=== PATIENT | male | born 1955 | race Caucasian/White ===

== ENCOUNTER 2016-12-22 07:08 | Inpatient (IN) | payer BC ==
[2016-12-15 11:14] LABS: WBC (NOT ORDERED) (RFLEX) 0 (0-5)
[2016-12-15 12:03] LABS: BASOPHILS 0.5 %; BASOPHILS ABSOLUTE 0.04 10/3/uL (0.0-0.16); EOSINOPHILS 2.5 %; EOSINOPHILS ABSOLUTE 0.18 10/3/uL (0.0-0.53); HEMATOCRIT 43.2 % (40.0-51.0); HEMOGLOBIN 14.8 g/dL (13.6-17.8); IMMATURE GRANULOCYTES 0.1 %; IMMATURE GRANULOCYTES ABSOLUTE 0.01 10/3/uL (0.0-0.11); LYMPHOCYTES ABSOLUTE 2.19 10/3/uL (0.67-4.30); MEAN CORPUS HGB CONC 34.3 g/dL (32.0-36.0); MEAN CORPUSCULAR HEMOGLOB 29.6 pg (26.0-34.0); MEAN CORPUSCULAR VOLUME 86.4 fL (80-100); MEAN PLATELET VOLUME 10.8 fL (9.2-13.0); MONOCYTES 5.3 %; MONOCYTES ABSOLUTE 0.39 10/3/uL (0.21-1.20); NEUTROPHILS 61.6 %; NEUTROPHILS ABSOLUTE 4.48 10/3/uL (2.02-8.40); PLATELET COUNT 197 10/3/uL (150-400); RBC DISTRIBUTION WIDTH 12.9 % (12.0-16.0); WHITE BLOOD CELLS 7.3 10/3/uL (4.5-10.5)
[2016-12-15 12:05] LABS: MANUAL DIFF NO %
[2016-12-15 12:10] LABS: INTERNATIONAL NORMAL RATI 1.3 UNITS (-)
[2016-12-15 12:17] LABS: % IRON SAT 25 % (20-50); A/G RATIO 1.1 (0.7-1.9); ALBUMIN 3.6 G/DL (3.5-5.0); ALKALINE PHOSPHATASE 57 U/L (45-117); BUN (BLOOD UREA NITROGEN) 16 MG/DL (6-23); CALCIUM, SERUM 8.3 MG/DL (8.5-10.4); CHLORIDE, SERUM 107 MMOL/L (96-112); CO2 (CARBON DIOXIDE) 30 MMOL/L (24-34); CREATININE 0.81 MG/DL (0.70-1.30); GFR AFRICAN AMERICAN 113 ML/MIN (>=60); GFR NON AFRICAN AMERICAN 97 ML/MIN (>=60); GLOBULIN 3.3 G/DL (2.5-4.1); GLUCOSE, SERUM 148 MG/DL (60-99); IRON BINDING CAPACITY 311 MCG/DL (250-450); IRON, SERUM 77 MCG/DL (35-150); POTASSIUM, SERUM 3.9 MMOL/L (3.5-5.3); SGOT(AST) 13 U/L (5-40); SGPT(ALT) 22 U/L (5-65); SODIUM, SERUM 144 MMOL/L (135-148); TOTAL BILIRUBIN 0.4 MG/DL (0-1.2); TOTAL PROTEIN 6.9 G/DL (6.0-8.5)
[2016-12-15 13:29] LABS: ASCORBIC ACID (UR NOT ORDER) NEG (NEG); BILIRUBIN, URINE NEGATIVE (NEG); KETONE, URINE NEGATIVE (NEG); LEUKOCYTE ESTERASE(NOT OR NEG (NEG)
--- NOTE | ~2016-12-22 | CN ---
Consultation Report [facility] [address] [place]. [address] NAME: NAYELY VAZQUEZ : 59 STATUS : ADM IN PAT#: [id number] AGE: 61 ADM/REG DATE : 12/22/16 MR#: [id number] REPORT SERV DATE: 12/24/16 DICTATED BY: DIANELYS BIRD DATE: 12/24/16 REPORT STATUS : Draft TRANSCRIBED BY: MODL DATE: 12/24/16 MEDICAL CONSULT DATE OF CONSULTATION: REASON FOR CONSULTATION: Diabetes management. HISTORY OF PRESENT ILLNESS: This is a very pleasant 61-year-old gentleman, who does have a history of diabetes type 2, insulin dependent with control on current management under Dr. Nancie snider. He has been diagnosed with diabetes about ten years ago and he is insulin dependent. Also, history of hypertension, paroxysmal atrial fibrillation, history of obesity, obstructive sleep apnea, degenerative joint disease, osteoarthritis, who has been recently diagnosed with extensive coronary artery disease. He had history of increasing shortness of breath, dyspnea on exertion as well as palpitation. He did have a stress test at the beginning of December, which showed some decreased ejection fraction and some ischemic changes, and that prompted him to be referred to a coronary arteriogram, which showed significant coronary artery disease. The patient has been referred to CT surgery and he underwent on the 2016 a bypass, 5 vessels as well as an extended left atrial maze procedure using radio-frequency ablation. Postoperatively, the patient has been started on insulin drip. He has been started also to eat and he tolerates diet very well. Hospitalist Service has been consulted for management of his diabetes. PAST MEDICAL HISTORY: Significant for diabetes type 2, insulin dependent, hypertension, paroxysmal atrial fibrillation, obesity, obstructive sleep apnea, degenerative joint disease, osteoarthritis, and recent diagnosed congestive heart failure. PAST SURGICAL HISTORY: Hiatal hernia repair, bilateral knee arthroscopic surgery, skin cancer removal and recent CABG. FAMILY HISTORY: Significant for coronary artery disease and cancer. SOCIAL HISTORY: The patient denies alcohol, tobacco, or IV drugs. MEDICATIONS: At home include Eliquis, aspirin, Cartia, Byetta, Neurontin, Glucotrol, hydrochlorothiazide, NovoLog sliding scale, Toujeo as well as metformin, Imdur, Altace, sotalol. REVIEW OF SYSTEMS: A 14-point review of systems had been obtained and pertinent positive has been listed into the history of present illness. Otherwise, negative except those underlying above. PHYSICAL EXAMINATION: VITAL SIGNS: Currently, the patient is afebrile. Blood pressure 124/72, heart rate 74, respiratory rate 15, saturating 96% on 4 L of oxygen, blood sugars anywhere between 125, 108, 91, 73, 101, and 77. Consultation Report [facility] [address] [place]. [address] NAME: NAYELY VAZQUEZ : 59 STATUS : ADM IN [facility]#: [id number] AGE: 61 ADM/REG DATE : 12/22/16 MR#: [id number] REPORT SERV DATE: 12/24/16 DICTATED BY: DIANELYS BIRD DATE: 12/24/16 REPORT STATUS : Draft TRANSCRIBED BY: ARASELI DATE: 12/24/16 GENERAL: He is a very pleasant, well-developed, well-nourished gentleman, in no acute distress. He is alert and oriented x3. He is nonfocal. He follows all his commands appropriately. HEENT: Show pupils equal, round, reactive to light. Extraocular movements intact. No JVD. No lymphadenopathy. No thyromegaly appreciated. CHEST: Eval shows bilateral air entry. Clear anteroposterior. Decreased breath sounds bibasilarly. No wheezes, crackles, or rhonchi appreciated. CARDIOVASCULAR: He has regular rate and rhythm. S1, S2 positive. No S3, no S4. No murmurs, rubs, or gallops appreciated. ABDOMEN: Soft, positive bowel sounds. Nontender. No guarding. No rebound. EXTREMITIES: No clubbing, cyanosis, or edema. NEUROLOGIC: The patient is alert and oriented x3. He is nonfocal. He follows all his commands appropriately. LABORATORY DATA: Labs from today include sodium of 144, potassium 4.3, chloride 111, CO2 25, BUN 25, creatinine 1, glucose is 117, and calcium is 7.8. His white count is 18.4, hemoglobin 12, hematocrit 35.4, and platelets 152. His INR is 1.4. His last hemoglobin A1c checked on 12/15/2016 show 5.7. ASSESSMENT AND PLAN: This is a very pleasant 61-year-old gentleman with recently diagnosed coronary artery disease, status post CABG x5 with diabetes type 2, currently insulin dependent uncontrolled. PLAN: We are going to start the patient on Levemir twice a day. Stop insulin drip in 1 hour after Levemir is given. Accu-Cheks before meals and at bedtime, sliding scale insulin subcutaneously level 3. Diet and lifestyle modification has been discussed with the patient as well. Further workup and recommendation pending above. Thank you for the consult. We will continue to follow with you. CF/MODL Dianelys Bird M.D. / [id number] CC: Shweta Browne M.D.
--- NOTE | ~2016-12-22 | DS ---
Discharge Summary [facility] [address] [place]. [address] NAME: NAYELY VAZQUEZ : 59 STATUS : DIS IN PAT#: [id number] AGE: 61 ADM/REG DATE : 12/22/16 MR#: [id number] REPORT SERV DATE: 01/03/17 DICTATED BY: DIANE SOUTH DATE: 01/02/17 REPORT STATUS : Draft TRANSCRIBED BY: ARASELI DATE: 01/02/17 Data Collection from hospitalization DISCHARGE DIAGNOSIS(ES): 1. Coronary artery disease. 2. Paroxysmal atrial fibrillation. 3. Hypertension. 4. Type 2 insulin-dependent diabetes mellitus. 5. Obstructive sleep apnea. 6. Obesity. 7. Degenerative joint disease. 8. Congestive heart failure. CONSULTATIONS: Dr. Dianelys Saeed and Dr. Devon Garland. PROCEDURES PERFORMED: 1. Coronary artery bypass grafting x5 with BELLA to the LAD, reverse saphenous vein graft placed to the first diagonal, reverse saphenous vein graft placed to the ramus intermedius, reverse saphenous vein graft placed to the third obtuse marginal, reverse saphenous vein graft placed to the posterior descending artery. 2. Extended left atrial Maze procedure on cardiopulmonary bypass using radiofrequency ablation. 3. Endoscopic vein harvest of the saphenous vein from the right leg. 4. Transesophageal echocardiography, 12/22/2016. PATHOLOGY: Heart, left atrial appendage; partial resection-multifocal fatty infiltration; no necrosis or active inflammation; myocyte hypertrophy, focal. MEDICATIONS: Vitamin C 1000 mg twice a day, aspirin 81 mg daily, Lipitor 40 mg at bedtime, Byetta 10 mcg subcutaneously twice a day, Lasix 40 mg daily, Neurontin 100 mg twice a day as needed, Glucotrol 5 mg every morning, Ohiopyle half to one tablet every four hours as needed, NovoLog injection insulin as instructed, Toujeo 40 units subcutaneously at bedtime, Prinivil 5 mg daily, Glucophage 1000 mg with breakfast and supper, Zaroxolyn 5 mg daily, Lopressor 12.5 mg twice a day, Klor-Con 20 mEq daily, safflower oil 1000 mg daily as needed, and Jantoven 7.5 mg every day at bedtime. He was instructed not to continue ramipril, sotalol, apixaban, diltiazem, hydrochlorothiazide or isosorbide. CONDITION AT DISCHARGE: Stable. DISPOSITION: The patient was discharged home on an 1800-calorie, low-cholesterol, low- sodium, cardiac/diabetic diet with activities as instructed. He would follow up with Dr. Rolando Moody 01/12/2017 and with Samuel Monroy three weeks following discharge. He would follow up at [facility] for an INR check 12/30/2016. HOSPITAL COURSE: This is a 61-year-old man who over the past year had noticed some increasing shortness of breath and dyspnea on exertion while walking uphill. He had no prior history of cardiac problems. He was having some problems with palpitations and this would feel like a fluttering in his chest. He would lie down to go to sleep, and usually by Discharge [address] [place]. [address] NAME: NAYELY VAZQUEZ : 59 STATUS : DIS IN PAT#: [id number] AGE: 61 ADM/REG DATE : 12/22/16 MR#: [id number] REPORT SERV DATE: 01/03/17 DICTATED BY: DIANE SOUTH DATE: 01/02/17 REPORT STATUS : Draft TRANSCRIBED BY: ARASELI DATE: 01/02/17 the following morning, the problem would be resolved. He had been referred to Cardiology and was placed on flecainide. He underwent myocardial perfusion imaging in 11/2016. He had not had any chest pain, but he did have borderline EKG changes that were suggestive of ischemia. His ejection fraction was mildly diminished at 48%. Imaging demonstrated posterolateral ischemia and stress test was graded as moderate risk. He was referred for a coronary arteriogram, which he underwent and this demonstrated significant flow-limiting multivessel coronary artery disease with diminished left ventricular function and ejection fraction 30%. Treatment options were discussed and it was elected to proceed with surgical intervention. He was admitted to the hospital for further evaluation and treatment. Upon admission, he was taken to the operating room where he underwent the above-mentioned procedure. He tolerated this well. There were no complications. On postop day #1, he was awake and alert. His incisions were okay. He was seen by Dr. Devon Garland. He had some mild discomfort. He was in a normal sinus rhythm. His lungs remained clear. He had mild edema. On 12/24/2016, he was seen by Dr. Dianelys Saeed regarding diabetes management, and the patient was diagnosed with diabetes about 10 years ago. He is insulin dependent. He has started to eat, and he tolerate his diet very well. He had been started on an insulin drip. The patient was going to be started on Levemir twice a day. Insulin drip would be stopped one hour after Levemir was given. Accu-Cheks would be performed before meals and at bedtime. Sliding scale insulin subcutaneously level 3 was started. Diet and lifestyle modification were discussed with the patient as well. He had been up sitting in a chair. He had trace lower extremity edema. White count was 18.4. On 12/25/2016, his lungs were more clear. His abdomen was soft and nontender. His incisions looked okay. Warfarin was started, pacing wires were removed. He was going to be transferred to the floor. He said he was feeling better. Plavix was stopped. Next day, he felt well. He was ambulating in his room. Discharge planning was performed. He had 2 to 3+ bilateral lower extremity edema. REJI hose remained in place. INR level was 1.3. On 12/27/2016, he seemed to be in good spirits. He had 1 to 2+ lower extremity edema. He had no chest pain or dyspnea. Discharge instructions were given. Due to his improved and stable condition, he was discharged home with the above-stated instructions. Information collected by: Selam Reeves I submit the above information as my discharge summary. TG/MODL Diane South M.D. / [id number] CC: Shweta Browne M.D. Mark Thel, M.D.
--- NOTE | ~2016-12-22 | OP ---
Record Of Operation [facility] [address] [place]. [address] NAME: NAYELY VAZQUEZ : 59 STATUS : ADM IN PAT#: [id number] AGE: 61 ADM/REG DATE : 12/22/16 MR#: [id number] REPORT SERV DATE: 12/22/16 DICTATED BY: DIANE SOUTH DATE: 12/22/16 REPORT STATUS : Draft TRANSCRIBED BY: MODL DATE: 12/22/16 DATE OF PROCEDURE: 12/22/2016 PREOPERATIVE DIAGNOSES: 1. Coronary artery disease with dyspnea on exertion. 2. Paroxysmal atrial fibrillation. 3. Chronic on acute congestive heart failure (ejection fraction 48% down to 30%). 4. Type 2 insulin-dependent diabetes mellitus. 5. Obesity. 6. Obstructive sleep apnea. POSTOPERATIVE DIAGNOSES: 1. Coronary artery bypass grafting x5, left internal mammary artery placed to left anterior descending, reverse saphenous vein graft placed to the first diagonal, reverse saphenous vein graft placed to the ramus intermedius, reverse saphenous vein graft placed to the third obtuse marginal, reverse saphenous vein graft placed to the posterior descending artery. 2. Extended left atrial Maze procedure on cardiopulmonary bypass using radiofrequency ablation. 3. Endoscopic vein harvest, saphenous vein from the right leg. 4. Transesophageal echocardiography. SURGEON: Diane South M.D. ASSISTANTS: Caleb Marshall and Max Krishnamurthy. ANESTHESIA: General with Dr. Colin . FRUIT OR NUT PICKER: Rolando Moody M.D. INDICATIONS: This is a very large, obese, diabetic, hypertensive male with increasing dyspnea on exertion over the last one year. He has no previous history of coronary or cardiac issues. There is a history of possible palpitations and Dr. Moody felt like the patient may have had paroxysmal atrial fibrillation. He was treated with medication for this. Because of recent EKG, he underwent evaluation with cardiac stress test. During the study, he had borderline EKG changes. Ventricular function mildly reduced at 48%. There is posterolateral ischemia. This was followed by cardiac catheterization which demonstrated diffuse and severe three-vessel coronary artery disease. Ventricular function was significantly reduced and ejection fraction of 30%, on cath. The patient was felt to have small heavily diseased targets; however, given the severity of disease and his other medical problems such as diabetes mellitus, it was felt the patient should undergo bypass surgery if possible. We were asked to see the patient for possible coronary artery bypass grafting and consideration for left atrial Maze procedure. We discussed with Dr. Moody with the patient's family and after discussing the operation, its indication, risks, they wished to proceed. STS predicted mortality was less than 5%. Morbidity-mortality less than 10%. This was shared with the patient and his family. Record Of Operation [address] [place]. [address] NAME: NAYELY VAZQUEZ : 59 STATUS : ADM IN PAT#: [id number] AGE: 61 ADM/REG DATE : 12/22/16 MR#: [id number] REPORT SERV DATE: 12/22/16 DICTATED BY: DIANE SOUTH DATE: 12/22/16 REPORT STATUS : Draft TRANSCRIBED BY: ARASELI DATE: 12/22/16 FINDINGS AT OPERATION: 1. Cross-clamp 89 minutes. Total pump time 118 minutes. 2. The LAD was 1.5 mm, heavily diseased vessel. Bypass is distally. A 3 mm BELLA was anastomosed to it with good runoff. 3. The first diagonal was 1.75 mm, heavily diseased. A 4 mm RSVG was anastomosed to it with good runoff. Unfortunately, this vein graft not long enough to reach the ascending aorta. Therefore, it was piggybacked into the side of vein graft going to the third obtuse marginal vessel. 4. The ramus intermedius vessel was 2 mm and moderately diseased. A 4 mm RSVG was anastomosed to it with good runoff. 5. The third obtuse marginal was 2 mm and moderately diseased. A 4 mm RSVG was anastomosed to it with runoff .. 6. The posterior descending artery was 1.5 mm and heavily diseased. A 4 mm RSVG was anastomosed to the distal portion of the PDA with good runoff. 7. The whole length of the right coronary artery graft was heavily calcified and not graftable. 8. The vein quality was good, and all grafts did have good Doppler signal at the end of the case. 9. Left atrial Maze procedure was performed on cardiopulmonary bypass. The complete lesion's check list may be found on the record. Briefly, we performed pulmonary vein isolation, superior and inferior dome lesions, and the left atrial appendage lesion and connecting lesion. Testing of exit and entrance block was performed. 10.We ligate and amputate the left atrial appendage using a 60 mm stapler. 11.There was a good or improved ventricular function after bypass were completed. There was no significant valvular pathology on echo. PATHOLOGIC SPECIMENS: Include left atrial appendage. DESCRIPTION OF PROCEDURE: The patient was brought to the operating suite. General anesthesia was induced. The airway secured with an endotracheal tube. Lines were secured by Anesthesia. A Delacruz catheter was placed. The patient's chest, abdomen, groin, and legs were prepped with Hibiclens and ChloraPrep and draped with Ioban sterile sheets. KELLY probe was placed by Anesthesia and examination carried out as discussed above. No clot was seen in the left atrial appendage per Dr. Colin. The saphenous vein was harvested from the right leg using endoscopic technique. Briefly, the vein was cut directly down upon through a 2 cm incision placed in the medial aspect of the right knee. Then, using VasoView trocars, the vessel was dissected from the surrounding subcutaneous tissue and fat. The side branches were identified, ligated, divided with cautery. Once adequate length of vein had been dissected, a counterincision was made up in the groin and in the lower leg. The vein was ligated, divided, and brought through the knee incision. The vein quality was good, and the leg was made hemostatic and closed in layers with absorbable suture and skin closed with subcuticular fashion. Next, a midline sternal incision was made, and the sternum was opened with a saw. The left hemithorax was elevated, and the endothoracic fascia was incised. Side branches of the NIRU Record Of Operation [address] [address] NAME: NAYELY VAZQUEZ MASHA : 59 STATUS : ADM IN PAT#: [id number] AGE: 61 ADM/REG DATE : 12/22/16 MR#: [id number] REPORT SERV DATE: 12/22/16 DICTATED BY: DIANE SOUTH DATE: 12/22/16 REPORT STATUS : Draft TRANSCRIBED BY: MODChacorta DATE: 12/22/16 were clipped and divided. Once the NIRU was completely dissected, the patient was anticoagulated with heparin and chest tube placed the left pleural cavity. The NIRU was clipped and divided distally. There was good flow through the NIRU, and its pedicle was infiltrated with papaverine. Next, the Elton retractor was placed in the pericardium over the innominate vein. The diaphragm was T'd and tacked to the side of the chest wall. Cannulation pursestring sutures were placed, and cannulation was carried out in a routine manner. A retrograde cardioplegia cannula was placed in the coronary sinus. When all was in readiness, the patient was placed on cardiopulmonary bypass. The distal targets were then marked out on the heart as described in the findings. We then performed left atrial Maze procedure. We dissected around the confluence of both right and left pulmonary veins. Then, testing was performed for X3 and later exit block confirmation using the AtriCure bipolar pen. Then, pulmonary vein isolation was performed using AtriCure bipolar clamp. The lesion was placed at the base of the atrial appendage and a connecting lesion between the left atrial appendage and left PVI was performed. Then, the aorta was crossclamped. Initial dose of cold blood cardioplegia solution was given in a combination of antegrade and retrograde fashion, then in a retrograde manner following proximal anastomoses. Following the first dose cardioplegia, the heart was gently retracted towards the surgeon. The left atrial appendage was grasped. It was ligated and amputated at its base using thoracoscopic stapler and 60 mm purple staple load. We then continued with the left atrial Maze procedure. A small left atriotomy was made and superior and inferior dome lesions were created using AtriCure bipolar clamp. Once this was completed, the left atriotomy was closed in a two-layer fashion with non pledgeted 4-0 Prolene. Then, a heart port was placed. We then turned our attention towards the bypass. The heart was first positioned for the PDA graft. Arteriotomy was made in the distal portion of the PDA. The vein graft trimmed and anastomosed to it with 7-0 Prolene. The vein graft was measured back to the right side of the ascending aorta where it was divided. We then positioned the heart for the ramus intermedius graft. Another arteriotomy was made. The vein graft trimmed and anastomosed to it with 7-0 Prolene. This vein graft was measured back to the left side of the ascending aorta where it was divided. Next, the proximal ends of the two vein grafts were anastomosed to 4.5 mm punch aortotomy with 6-0 Prolene. Another dose of cardioplegia was given. We positioned the heart for the obtuse marginal graft. Arteriotomy was made. The vein graft trimmed and anastomosed to it with 7-0 Prolene. The vein graft was measured back to the left side of the ascending aorta where it was divided. Next, the heart was positioned for the diagonal graft. Arteriotomy was made. The vein graft trimmed and anastomosed to it with 7-0 Prolene. This vein graft was not of sufficient length to reach the ascending aorta and was divided. Then, the proximal end of the obtuse marginal graft was anastomosed to 5 mm punch aortotomy with 6-0 Prolene. The vein from the diagonal was matched up to the side branch off this third obtuse marginal vessel and a small venotomy was made. Then, a venovenous anastomosis was constructed with 7-0 Prolene. Another dose of cardioplegia was given and warming was begun. We then positioned the heart for the LAD graft. Arteriotomy was made in the distal LAD. We did dissect up proximally on the LAD; however, it was Record Of Operation [address] [place]. [address] NAME: NAYELY VAZQUEZ : 59 STATUS : ADM IN PAT#: [id number] AGE: 61 ADM/REG DATE : 12/22/16 MR#: [id number] REPORT SERV DATE: 12/22/16 DICTATED BY: DIANE SOUTH DATE: 12/22/16 REPORT STATUS : Draft TRANSCRIBED BY: MODChacorta DATE: 12/22/16 extensively diseased and heavily calcified. I felt we should go where the vessel was in good reasonable quality. The NIRU was then brought out the left chest through a notch in the pericardium over the pulmonary artery. The NIRU was opened and anastomosed to the LAD with a running suture of 8-0 Prolene. The endothoracic fascia was tacked to epicardium. The patient was placed in Trendelenburg and a final dose of warm blood cardioplegia was given in a retrograde fashion. Ventricular and atrial pacing wires were placed. Following the last dose cardioplegia and deairing of the aorta, the aortic cross clamp was removed. The distal and proximal anastomoses were inspected and made hemostatic. Doppler demonstrated good flow through the grafts. The heart resumed a normal sinus rhythm and was paced atrially at a rate of 80. Ventilation was begun. When the heart demonstrated good contractility, it was allowed to fill and eject. When deairing was completed, the ascending aortic root vent was removed and these pursestring sutures tied and reinforced. The patient was weaned from cardiopulmonary bypass with minimal inotropic support. The venous cannula was removed and these pursestring sutures tied. KELLY examination demonstrated good ventricular function with no significant valvular pathology. Protamine was administered by Anesthesia and following a period of hemodynamic stability, the aortic cannula was removed and these pursestring sutures tied and reinforced. The patient continued do well and chest irrigated copiously with saline. Meticulous hemostasis was obtained. Hemasorb was ordered placed along the cut edge of the sternum. Once hemostasis was assured, the pericardium was draped over the anterior surface of heart and tacked into position. Doppler demonstrated good flow through the grafts following protamine administration. Then, chest tubes were placed and the sternum reapproximated with 8 sternal wires. The clavipectoral fascia and linea alba closed with #1 Stratafix. The subcutaneous tissue closed with 2-0 Stratafix. The skin was closed subcuticular fashion. The patient tolerated the procedure well. There were no complications. Sponge and needle counts were correct. DISPOSITION: The patient left intubated, sedated, and transported to the intensive care unit in stable condition. DEBRA/ARASELI Diane South M.D. / [id number] Record Of [address] [address] NAME: NAYELY VAZQUEZ : 59 STATUS : ADM IN [facility]#: [id number] AGE: 61 ADM/REG DATE : 12/22/16 MR#: [id number] REPORT SERV DATE: 12/22/16 DICTATED BY: DIANE SOUTH DATE: 12/22/16 REPORT STATUS : Draft TRANSCRIBED BY: ARASELI DATE: 12/22/16 CC: Shweta Browne M.D. Gregg Shander, M.D.
[~2016-12-22 07:08] MED LIST: ALTACE10 MG PO; ASAB PO; BETAPACE80 PO; BYETTA10 SC; CARTIA XT120 MG/24 PO; CLA1000 MG PO; ELIQUIS 5 MG TAB5 MG PO; FLECAINIDE100 MG PO; GLUCOPHAGE1000 MG PO; GLUCOTROL5 PO; HYDROCHLOROT12.5 MG PO; IMDUR30 PO; NEUR100 PO; NEUR600 PO; NOVOLOG SC; TOUJEO SC
[2016-12-22 21:53] LABS: BE (BASE EXCESS) -3.6 MEQ/L (0 +/- 2.5); CARBOXYHEMOGLOBIN 0.4 % (0-3); HCO3 (ACTUAL BICARBONATE) 22.9 MEQ/L (23-27); INSTRUMENT SERIAL # 11843; METHEMOGLOBIN 0.3 % (0-3); MODE SIMV; O2 CONTENT 19.1 VOL% (18-24); PCO2 (CO2 TENSION) 47 MMHG (35-45); PO2 (O2 TENSION) 111 MMHG (79-93); SAMPLE Arterial; TIDAL VOLUME 800 ML; pH 7.31 (7.37-7.43)
[2016-12-22 21:59] LABS: BASOPHILS 0.2 %; BASOPHILS ABSOLUTE 0.04 10/3/uL (0.0-0.16); EOSINOPHILS 0.5 %; EOSINOPHILS ABSOLUTE 0.09 10/3/uL (0.0-0.53); HEMATOCRIT 39.8 % (40.0-51.0); HEMOGLOBIN 13.7 g/dL (13.6-17.8); IMMATURE GRANULOCYTES 0.3 %; IMMATURE GRANULOCYTES ABSOLUTE 0.05 10/3/uL (0.0-0.11); LYMPHOCYTES 8.1 %; LYMPHOCYTES ABSOLUTE 1.55 10/3/uL (0.67-4.30); MANUAL DIFF NO %; MEAN CORPUS HGB CONC 34.4 g/dL (32.0-36.0); MEAN CORPUSCULAR VOLUME 87.3 fL (80-100); MEAN PLATELET VOLUME 10.4 fL (9.2-13.0); MONOCYTES 3.1 %; NEUTROPHILS 87.8 %; NEUTROPHILS ABSOLUTE 16.79 10/3/uL (2.02-8.40); PLATELET COUNT 155 10/3/uL (150-400); RBC DISTRIBUTION WIDTH 13.4 % (12.0-16.0); RED CELL COUNT 4.56 10/6/uL (4.7-6.1); WHITE BLOOD CELLS 19.1 10/3/uL (4.5-10.5)
[2016-12-22 22:10] LABS: INTERNATIONAL NORMAL RATI 1.4 UNITS (-); PARTIAL THROMBO TIME 29.6 SEC (22.5-37.2)
[2016-12-22 22:11] LABS: BUN (BLOOD UREA NITROGEN) 17 MG/DL (6-23); CALCIUM, SERUM 8.3 MG/DL (8.5-10.4); CHLORIDE, SERUM 116 MMOL/L (96-112); CO2 (CARBON DIOXIDE) 26 MMOL/L (24-34); CREATININE 1.04 MG/DL (0.70-1.30); GFR AFRICAN AMERICAN 91 ML/MIN (>=60); GFR NON AFRICAN AMERICAN 78 ML/MIN (>=60); GLUCOSE, SERUM 125 MG/DL (60-99); SODIUM, SERUM 149 MMOL/L (135-148)
[2016-12-22 22:13] LABS: POTASSIUM, SERUM 3.8 MMOL/L (3.5-5.3)
[2016-12-22 22:37] LABS: FIBRINOGEN 249 MG/DL (230-462)
[2016-12-23 00:46] LABS: BASOPHILS 0.1 %; BASOPHILS ABSOLUTE 0.01 10/3/uL (0.0-0.16); EOSINOPHILS 0.1 %; EOSINOPHILS ABSOLUTE 0.01 10/3/uL (0.0-0.53); HEMATOCRIT 42.6 % (40.0-51.0); HEMOGLOBIN 14.9 g/dL (13.6-17.8); IMMATURE GRANULOCYTES 0.2 %; IMMATURE GRANULOCYTES ABSOLUTE 0.03 10/3/uL (0.0-0.11); LYMPHOCYTES 7.1 %; LYMPHOCYTES ABSOLUTE 1.11 10/3/uL (0.67-4.30); MEAN CORPUSCULAR HEMOGLOB 30.1 pg (26.0-34.0); MEAN CORPUSCULAR VOLUME 86.1 fL (80-100); MEAN PLATELET VOLUME 10.5 fL (9.2-13.0); MONOCYTES 2.4 %; MONOCYTES ABSOLUTE 0.38 10/3/uL (0.21-1.20); NEUTROPHILS 90.1 %; NEUTROPHILS ABSOLUTE 14.04 10/3/uL (2.02-8.40); PLATELET COUNT 135 10/3/uL (150-400); RBC DISTRIBUTION WIDTH 13.4 % (12.0-16.0); RED CELL COUNT 4.95 10/6/uL (4.7-6.1); WHITE BLOOD CELLS 15.6 10/3/uL (4.5-10.5)
[2016-12-23 00:48] LABS: MANUAL DIFF NO %
[2016-12-23 00:57] LABS: BUN (BLOOD UREA NITROGEN) 18 MG/DL (6-23); CALCIUM, SERUM 8.3 MG/DL (8.5-10.4); CHLORIDE, SERUM 115 MMOL/L (96-112); CO2 (CARBON DIOXIDE) 23 MMOL/L (24-34); GFR AFRICAN AMERICAN 95 ML/MIN (>=60); GFR NON AFRICAN AMERICAN 82 ML/MIN (>=60); GLUCOSE, SERUM 181 MG/DL (60-99); SODIUM, SERUM 147 MMOL/L (135-148)
[2016-12-23 03:25] LABS: BE (BASE EXCESS) -5.6 MEQ/L (0 +/- 2.5); CARBOXYHEMOGLOBIN 0.3 % (0-3); DEVICE NC; HCO3 (ACTUAL BICARBONATE) 19.7 MEQ/L (23-27); HEMOBLOGIN CONTENT 14.8 G/DL (14-18); INSTRUMENT SERIAL # 11843; METHEMOGLOBIN 0.3 % (0-3); O2 CONTENT 19.7 VOL% (18-24); PCO2 (CO2 TENSION) 38 MMHG (35-45); PO2 (O2 TENSION) 86 MMHG (79-93); SAMPLE Arterial; pH 7.33 (7.37-7.43)
[2016-12-23 03:40] LABS: BASOPHILS 0.1 %; BASOPHILS ABSOLUTE 0.01 10/3/uL (0.0-0.16); EOSINOPHILS 0 %; HEMATOCRIT 41.6 % (40.0-51.0); HEMOGLOBIN 14.3 g/dL (13.6-17.8); IMMATURE GRANULOCYTES 0.2 %; IMMATURE GRANULOCYTES ABSOLUTE 0.03 10/3/uL (0.0-0.11); LYMPHOCYTES 4.7 %; LYMPHOCYTES ABSOLUTE 0.69 10/3/uL (0.67-4.30); MEAN CORPUS HGB CONC 34.4 g/dL (32.0-36.0); MEAN CORPUSCULAR HEMOGLOB 29.6 pg (26.0-34.0); MEAN CORPUSCULAR VOLUME 86.1 fL (80-100); MEAN PLATELET VOLUME 10.3 fL (9.2-13.0); MONOCYTES 3.5 %; MONOCYTES ABSOLUTE 0.52 10/3/uL (0.21-1.20); NEUTROPHILS 91.5 %; NEUTROPHILS ABSOLUTE 13.58 10/3/uL (2.02-8.40); PLATELET COUNT 135 10/3/uL (150-400); RBC DISTRIBUTION WIDTH 13.3 % (12.0-16.0); RED CELL COUNT 4.83 10/6/uL (4.7-6.1); WHITE BLOOD CELLS 14.8 10/3/uL (4.5-10.5)
[2016-12-23 03:41] LABS: MANUAL DIFF NO %
[2016-12-23 03:54] LABS: BUN (BLOOD UREA NITROGEN) 17 MG/DL (6-23); CHLORIDE, SERUM 115 MMOL/L (96-112); CO2 (CARBON DIOXIDE) 24 MMOL/L (24-34); CREATININE 0.88 MG/DL (0.70-1.30); GFR AFRICAN AMERICAN 109 ML/MIN (>=60); GFR NON AFRICAN AMERICAN 94 ML/MIN (>=60); GLUCOSE, SERUM 145 MG/DL (60-99); POTASSIUM, SERUM 4.1 MMOL/L (3.5-5.3); SODIUM, SERUM 147 MMOL/L (135-148)
[2016-12-24 03:41] LABS: BASOPHILS 0.1 %; BASOPHILS ABSOLUTE 0.01 10/3/uL (0.0-0.16); EOSINOPHILS 0.1 %; EOSINOPHILS ABSOLUTE 0.01 10/3/uL (0.0-0.53); HEMATOCRIT 35.4 % (40.0-51.0); IMMATURE GRANULOCYTES 0.3 %; IMMATURE GRANULOCYTES ABSOLUTE 0.06 10/3/uL (0.0-0.11); LYMPHOCYTES 10.7 %; LYMPHOCYTES ABSOLUTE 1.98 10/3/uL (0.67-4.30); MANUAL DIFF NO %; MEAN CORPUS HGB CONC 33.9 g/dL (32.0-36.0); MEAN CORPUSCULAR HEMOGLOB 29.9 pg (26.0-34.0); MEAN CORPUSCULAR VOLUME 88.3 fL (80-100); MEAN PLATELET VOLUME 10.2 fL (9.2-13.0); MONOCYTES 7.9 %; MONOCYTES ABSOLUTE 1.45 10/3/uL (0.21-1.20); NEUTROPHILS 80.9 %; NEUTROPHILS ABSOLUTE 14.93 10/3/uL (2.02-8.40); PLATELET COUNT 152 10/3/uL (150-400); RBC DISTRIBUTION WIDTH 13.6 % (12.0-16.0); RED CELL COUNT 4.01 10/6/uL (4.7-6.1); WHITE BLOOD CELLS 18.4 10/3/uL (4.5-10.5)
[2016-12-24 03:58] LABS: CALCIUM, SERUM 7.8 MG/DL (8.5-10.4); CHLORIDE, SERUM 111 MMOL/L (96-112); CO2 (CARBON DIOXIDE) 25 MMOL/L (24-34); GFR AFRICAN AMERICAN 95 ML/MIN (>=60); GFR NON AFRICAN AMERICAN 82 ML/MIN (>=60); GLUCOSE, SERUM 117 MG/DL (60-99); POTASSIUM, SERUM 4.3 MMOL/L (3.5-5.3); SODIUM, SERUM 144 MMOL/L (135-148)
[2016-12-24 03:59] LABS: BUN (BLOOD UREA NITROGEN) 25 MG/DL (6-23)
[2016-12-25 03:54] LABS: HEMATOCRIT 37.5 % (40.0-51.0); HEMOGLOBIN 12.9 g/dL (13.6-17.8); MEAN CORPUS HGB CONC 34.4 g/dL (32.0-36.0); MEAN CORPUSCULAR HEMOGLOB 30.3 pg (26.0-34.0); MEAN PLATELET VOLUME 11.1 fL (9.2-13.0); PLATELET COUNT 163 10/3/uL (150-400); RBC DISTRIBUTION WIDTH 13.7 % (12.0-16.0); RED CELL COUNT 4.26 10/6/uL (4.7-6.1)
[2016-12-25 03:55] LABS: MANUAL DIFF YES %
[2016-12-25 04:07] LABS: BUN (BLOOD UREA NITROGEN) 22 MG/DL (6-23); CALCIUM, SERUM 8.4 MG/DL (8.5-10.4); CREATININE 1.09 MG/DL (0.70-1.30); GFR AFRICAN AMERICAN 86 ML/MIN (>=60); GFR NON AFRICAN AMERICAN 74 ML/MIN (>=60); POTASSIUM, SERUM 4.1 MMOL/L (3.5-5.3)
[2016-12-25 04:08] LABS: CHLORIDE, SERUM 98 MMOL/L (96-112); CO2 (CARBON DIOXIDE) 30 MMOL/L (24-34); GLUCOSE, SERUM 303 MG/DL (60-99); SODIUM, SERUM 137 MMOL/L (135-148)
[2016-12-25 05:11] LABS: ANISOCYTOSIS 1+ (5-10/OIF) (0-5/OIF); EOSINOPHILS 2 %; EOSINOPHILS ABSOLUTE (CALC) 0.34 10/3/uL (0.0-0.53); LYMPHOCYTES 6 %; LYMPHOCYTES ABSOLUTE (CALC) 1.02 10/3/uL (0.67-4.30); MONOCYTES 4 %; MONOCYTES ABSOLUTE (CALC) 0.68 10/3/uL (0.21-1.20); NEUTROPHILS ABSOLUTE (CALC) 14.96 10/3/uL (2.02-8.40); PLATELET ESTIMATE ADQ (ADEQUATE); SEGMENTED NEUTROPHIL (0) 88 %; TOTAL NUCLEATED CELLS 100
[2016-12-26 04:25] LABS: BASOPHILS 0.1 %; BASOPHILS ABSOLUTE 0.02 10/3/uL (0.0-0.16); EOSINOPHILS 2.4 %; EOSINOPHILS ABSOLUTE 0.34 10/3/uL (0.0-0.53); HEMATOCRIT 38.9 % (40.0-51.0); HEMOGLOBIN 13.4 g/dL (13.6-17.8); IMMATURE GRANULOCYTES 0.1 %; IMMATURE GRANULOCYTES ABSOLUTE 0.02 10/3/uL (0.0-0.11); INTERNATIONAL NORMAL RATI 1.3 UNITS (-); LYMPHOCYTES ABSOLUTE 1.85 10/3/uL (0.67-4.30); MEAN CORPUS HGB CONC 34.4 g/dL (32.0-36.0); MEAN PLATELET VOLUME 10.4 fL (9.2-13.0); MONOCYTES 7.5 %; MONOCYTES ABSOLUTE 1.07 10/3/uL (0.21-1.20); NEUTROPHILS 76.9 %; NEUTROPHILS ABSOLUTE 10.94 10/3/uL (2.02-8.40); PLATELET COUNT 162 10/3/uL (150-400); PROTIME (NOT ORD) 15.6 SEC (12.0-14.5); RBC DISTRIBUTION WIDTH 13.3 % (12.0-16.0); RED CELL COUNT 4.47 10/6/uL (4.7-6.1); WHITE BLOOD CELLS 14.2 10/3/uL (4.5-10.5)
[2016-12-26 04:31] LABS: CALCIUM, SERUM 8.7 MG/DL (8.5-10.4); CHLORIDE, SERUM 99 MMOL/L (96-112); CO2 (CARBON DIOXIDE) 30 MMOL/L (24-34); CREATININE 0.96 MG/DL (0.70-1.30); GFR AFRICAN AMERICAN 100 ML/MIN (>=60); GFR NON AFRICAN AMERICAN 86 ML/MIN (>=60); POTASSIUM, SERUM 3.3 MMOL/L (3.5-5.3); SODIUM, SERUM 138 MMOL/L (135-148)
[2016-12-26 04:32] LABS: BUN (BLOOD UREA NITROGEN) 27 MG/DL (6-23); GLUCOSE, SERUM 213 MG/DL (60-99)
[2016-12-26 04:44] LABS: MANUAL DIFF NO %
[2016-12-27 06:19] LABS: INTERNATIONAL NORMAL RATI 1.3 UNITS (-); PROTIME (NOT ORD) 16.3 SEC (12.0-14.5)
[2016-12-27 06:23] LABS: BASOPHILS 0.2 %; BASOPHILS ABSOLUTE 0.03 10/3/uL (0.0-0.16); EOSINOPHILS 3.7 %; EOSINOPHILS ABSOLUTE 0.53 10/3/uL (0.0-0.53); HEMATOCRIT 37.8 % (40.0-51.0); HEMOGLOBIN 13.2 g/dL (13.6-17.8); IMMATURE GRANULOCYTES 0.3 %; IMMATURE GRANULOCYTES ABSOLUTE 0.04 10/3/uL (0.0-0.11); LYMPHOCYTES 11.2 %; LYMPHOCYTES ABSOLUTE 1.62 10/3/uL (0.67-4.30); MEAN CORPUS HGB CONC 34.9 g/dL (32.0-36.0); MEAN CORPUSCULAR HEMOGLOB 29.7 pg (26.0-34.0); MEAN CORPUSCULAR VOLUME 84.9 fL (80-100); MEAN PLATELET VOLUME 10.4 fL (9.2-13.0); MONOCYTES 8.9 %; MONOCYTES ABSOLUTE 1.28 10/3/uL (0.21-1.20); NEUTROPHILS 75.7 %; NEUTROPHILS ABSOLUTE 10.95 10/3/uL (2.02-8.40); RBC DISTRIBUTION WIDTH 13.3 % (12.0-16.0); RED CELL COUNT 4.45 10/6/uL (4.7-6.1); WHITE BLOOD CELLS 14.5 10/3/uL (4.5-10.5)
[2016-12-27 06:31] LABS: MANUAL DIFF NO %; PLATELET COUNT 218 10/3/uL (150-400)
[2016-12-27 06:33] LABS: CALCIUM, SERUM 8.5 MG/DL (8.5-10.4); CHLORIDE, SERUM 96 MMOL/L (96-112); CO2 (CARBON DIOXIDE) 32 MMOL/L (24-34); CREATININE 1.06 MG/DL (0.70-1.30); GFR AFRICAN AMERICAN 89 ML/MIN (>=60); GFR NON AFRICAN AMERICAN 76 ML/MIN (>=60); GLUCOSE, SERUM 190 MG/DL (60-99); POTASSIUM, SERUM 3.5 MMOL/L (3.5-5.3); SODIUM, SERUM 137 MMOL/L (135-148)
[2016-12-27 06:35] LABS: BUN (BLOOD UREA NITROGEN) 33 MG/DL (6-23)
[2016-12-27] MEDS ORDERED: VITC500 PO (10:10)
[2016-12-27] MEDS ORDERED: LIPITOR40 PO (10:11)
[2016-12-27] MEDS ORDERED: JANTOVEN5 MG PO (10:20)
[2016-12-27] MEDS ORDERED: Z5 PO (10:20)
[2016-12-27] MEDS ORDERED: NORCO1 TAB PO (10:21)
[2016-12-27] MEDS ORDERED: KLOR-CON M2020 MEQ PO (10:23)
[2016-12-27] MEDS ORDERED: L40 PO (10:23)
[2016-12-27] MEDS ORDERED: PRIN5 PO (10:24)
[2016-12-27] MEDS ORDERED: LOP25 PO (10:24)
[2017-06-29] MEDS ORDERED: ELIQUIS 5 MG TAB5 MG PO (17:09)
[2017-06-29] MEDS ORDERED: VITC500 PO (17:09)
[2017-06-29] MEDS ORDERED: ASAB PO (17:10)
[2017-06-29] MEDS ORDERED: LIPITOR40 PO (17:10)
[2017-06-29] MEDS ORDERED: OTC STOOL SOFTENER PO (17:11)
[2017-06-29] MEDS ORDERED: L40 PO (17:11)
[2017-06-29] MEDS ORDERED: PRIN5 PO (17:12)
[2017-06-29] MEDS ORDERED: GLUCOTROL5 PO (17:12)
[2017-06-29] MEDS ORDERED: GLUCOPHAGE1000 MG PO (17:13)
[2017-06-29] MEDS ORDERED: Z5 PO (17:14)
[2017-06-29] MEDS ORDERED: LOP25 PO (17:15)
[2017-06-29] MEDS ORDERED: KLOR-CON M2020 MEQ PO (17:15)
[2017-06-29] MEDS ORDERED: BYETTA10 SC (17:16)
[2017-06-29] MEDS ORDERED: NOVOLOG SC (17:17)
[2017-06-29] MEDS ORDERED: NEUR100 PO (17:18)
[2017-06-29] MEDS ORDERED: TOUJEO SC (17:18)
[2017-06-29] MEDS ORDERED: CLA1000 MG PO (17:20)
[2017-06-29] MEDS ORDERED: FORTAMET500 MG PO (17:25)
== END 2016-12-27 12:35 | disposition home or self-care (01) | DRG 228 ==
LOC: SDC/OF 07:08 → CVICU 15:59 → 5NO 12-25 09:53
PROVIDERS: Internal Medicine Cardiovascular Disease; Nurse Practitioner Family; Thoracic Surgery (Cardiothoracic Vascular Surgery)
PROC: 06BP4ZZ Excision of Right Saphenous Vein, Percutaneous Endoscopic Approach (ICD-10-PCS; 2016-12-22)
PROC: 5A1221Z Performance of Cardiac Output, Continuous (ICD-10-PCS; 2016-12-22)
PROC: B246ZZ4 Ultrasonography of Right and Left Heart, Transesophageal (ICD-10-PCS; 2016-12-22)
PROC: 02B70ZK Excision of Left Atrial Appendage, Open Approach (ICD-10-PCS; 2016-12-22)
PROC: 021309W Bypass Coronary Artery, Four or More Arteries from Aorta with Autologous Venous Tissue, Open Approach (ICD-10-PCS; principal; 2016-12-22 10:00)
PROC: 02580ZZ Destruction of Conduction Mechanism, Open Approach (ICD-10-PCS; 2016-12-22 10:00)
PROC: 0210099 Bypass Coronary Artery, One Artery from Left Internal Mammary with Autologous Venous Tissue, Open Approach (ICD-10-PCS; 2016-12-22 10:00)
DX: I25.10 Atherosclerotic heart disease of native coronary artery without angina pectoris (principal); I50.23 Acute on chronic systolic (congestive) heart failure; I48.0 Paroxysmal atrial fibrillation; E11.9 Type 2 diabetes mellitus without complications; E66.9 Obesity, unspecified; G47.33 Obstructive sleep apnea (adult) (pediatric); Z79.899 Other long term (current) drug therapy; Z79.84 Long term (current) use of oral hypoglycemic drugs; I11.0 Hypertensive heart disease with heart failure; Z68.35 Body mass index [BMI] 35.0-35.9, adult
CPT/HCPCS: 31720; 36415; 71010; 71020; 80048; 80053; 81001; 82330; 82803; 82805; 82947; 82962; 83036; 83540; 83550; 83735; 84132; 84295; 85014; 85025; 85347; 85384; 85610; 85730; 86850; 86900; 86901; 86920; 87641; 88304; 90686; 93005; 93312; 93320; 93325; 94002; 94640; 94660; 94770; A9270-GY; C1713; C1769; C1894; G0008; J0690; J1644; J2150; J2250; J2370; J2405; J2440; J2720; J2795; J2930; J3010; J3475; J3480; P9045; P9047

== ENCOUNTER 2017-01-20 10:01 | Inpatient (IN) | payer BC ==
--- NOTE | ~2017-01-20 | DS ---
Discharge Summary [facility] [address] [place] [address] NAME: NAYELY VAZQUEZ : 59 STATUS : DIS IN PAT#: [id number] AGE: 62 ADM/REG DATE : 01/20/17 MR#: [id number] REPORT SERV DATE: 02/06/17 DICTATED BY: XIN ROSALES DATE: 02/05/17 REPORT STATUS : Draft TRANSCRIBED BY: MODL DATE: 02/05/17 Data Collection from hospitalization DISCHARGE DIAGNOSES: 1. Moderate-large pericardial effusion. 2. Coronary artery disease, chronic anticoagulation. 3. Type 2 diabetes mellitus. 4. Paroxysmal atrial fibrillation. 5. Obstructive sleep apnea. 6. Hypertension. 7. Hyperlipidemia. 8. Ischemic cardiomyopathy. CONSULTATION: Dr. Mariusz South. PROCEDURES PERFORMED: 1. Formal transthoracic echocardiogram and cardioversion, 01/21/2017. 2. Subxiphoid pericardial window with drainage of pericardial effusion, transesophageal echocardiogram, 01/23/2017. 3. CT scan of the chest without contrast, 01/22/2017. DISCHARGE MEDICATIONS: Tylenol 500 mg twice a day as needed, Eliquis 5 mg twice a day, vitamin C 1000 mg twice a day, Halfprin 81 mg every morning, Lipitor 40 mg at bedtime, Keflex 500 mg three times a day for 10 days, Colace 400 mg at bedtime, Byetta 10 mcg subcutaneously with breakfast and supper, Lasix 40 mg every morning, Neurontin 100 mg twice a day as needed, Glucotrol 5 mg every morning, [place] 10/325 half to one tablet every four hours as needed, [place] 10/325 half tablet at bedtime, NovoLog FlexPen as instructed, Toujeo 40 units subcutaneously at bedtime, Prinivil 5 mg every morning, Glucophage 1000 mg with breakfast and supper, Zaroxolyn 5 mg every morning, Lopressor 12.5 mg twice a day, Klor-Con 20 mEq every morning, Safflower oil 1000 mg daily as needed. CONDITION AT DISCHARGE: Stable. DISPOSITION: The patient was discharged home on 1800-calorie diabetic diet with activities as instructed. He would follow up with Samuel Monroy, 02/19/[address] Xin Rosales, 02/25/2017. HOSPITAL COURSE: This is a 61-year-old man, who had undergone five-vessel coronary artery bypass grafting by Dr. South on 12/22/2016. At that time, he also had a maze procedure. He has a history of paroxysmal atrial fibrillation and I had followed him over the past several years. He reportedly had been on sotalol prior to surgery, but a few doses of amiodarone had been given after surgery. He had been discharged home without any amiodarone. He is a diabetic with hypertension and hyperlipidemia, but has no history of smoking. He does have ischemic cardiomyopathy with an ejection fraction around 30% by left ventriculogram prior to the open heart surgery. He had been in his usual state of health until about one week prior to this admission, when he started to get progressively tired and had some dyspnea on exertion and poorly defined fluttering sensation in the upper part of his back. He decided to go to the emergency room and was found to be in atrial flutter with Discharge Summary [address] [address] NAME: NAYELY VAZQUEZ : 59 STATUS : DIS IN PAT#: [id number] AGE: 62 ADM/REG DATE : 01/20/17 MR#: [id number] REPORT SERV DATE: 02/06/17 DICTATED BY: XIN ROSALES DATE: 02/05/17 REPORT STATUS : Draft TRANSCRIBED BY: ARASELI DATE: 02/05/17 2:1 block and a heart rate of about 147 beats per minute. Due to the difficulties to convert him back to a sinus rhythm with increased dose of Cardizem and a drop in his systolic pressure to 100s, the patient was in the process of receiving intravenous amiodarone. He said he had fluttering sensation in his chest. There was no sign of obvious fluid overload on physical exam or chest x-ray. Cardiac enzymes thus far were negative. BNP was 292. He was admitted to the hospital at this time for further evaluation and treatment. Upon admission, we were going to continue intravenous amiodarone per protocol. If he did not convert back to a sinus rhythm, we would consider doing a cardioversion the following day. He had been on therapeutic anticoagulation. Left ventriculogram had suggested an ejection fraction of 70%. Echocardiogram was performed the following day. His shortness of breath was worse when he was recumbent. His lungs were clear. He has a moderate pericardial effusion noted on echocardiogram on admission. It was felt that the patient would need to undergo transesophageal echocardiogram and cardioversion. This was performed by Dr. Regine Morin. During the transesophageal echocardiogram, he had been observed to have a pericardial effusion and formal transthoracic echocardiogram demonstrated a large pericardial effusion. CT scan of the chest confirmed the presence of pericardial effusion with small left pleural effusion. It was felt that this should be drained to relieve pressure on the heart and to reduce the likelihood of continued atrial fibrillation. He had no new complaints. Plans were being made for pericardial window to be performed. On the , the patient underwent subxiphoid pericardial window with drainage of pericardial effusion and transesophageal echocardiography by Dr. Mariusz South. He tolerated this well and there were no complications. On 01/24/2017, he still had some drainage from the pericardial tube. He had only minimal discomfort. Over the next couple of days, he continued to have some incisional discomfort. Discharge planning was performed. On 01/26/2017, he looked good with little output from the drain. The drain was removed. Discharge instructions were given. Due to his improved and stable condition, he was discharged home with the above-stated instructions. Information collected by: Selam Reeves I submit the above information as my discharge summary. TG/MODL Xin Rosales M.D. / [id number] CC: Shweta Clemente M.D. James Zellner, M.D.
--- NOTE | ~2017-01-20 | HP ---
History And Physical [address] [address] NAME: NAYELY VAZQUEZ : 59 STATUS : ADM Juan A PAT#: [id number] AGE: 61 ADM/REG DATE : 01/20/17 MR#: [id number] REPORT SERV DATE: 01/20/17 DICTATED BY: AMADOU CABRERA DATE: 01/20/17 REPORT STATUS : Draft TRANSCRIBED BY: MODChacorta DATE: 01/20/17 DATE OF ADMISSION: 01/20/2017 CARDIOLOGY H AND P REFERRING: Dr. Keen in the emergency room. REFERRING REASON: Atrial fibrillation with RVR post CABG and Maze procedure. HISTORY OF PRESENT ILLNESS: This is a pleasant 61-year-old obese gentleman, well known to Dr. Rolando Moody from [facility] who underwent a five-vessel CABG by Dr. South on 12/22/2016. At that time, he also had a Maze procedure. He has a history of paroxysmal atrial fibrillation, has been followed by Dr. Moody for the last several years. He reportedly has been on sotalol before the surgery but few doses of amiodarone has been given after the surgery but he was discharged home without any amiodarone. The patient is diabetic with hypertension and hyperlipidemia but no history of smoking. He has ischemic cardiomyopathy with ejection fraction around 30% by LV gram prior to the open heart surgery. He has been in his usual state of health until about one week ago when he started to get progressively tired, having some dyspnea on exertion, and poorly defined fluttering sensation in the upper part of his back. He decided to go to the emergency room and was found to be in atrial flutter 2:1 block with heart rate about 147 beats per minute. Due to the difficulties to convert him back to sinus rhythm with increased dose of Cardizem and drop in the systolic blood pressure to 100, the patient is in the process to get intravenous amiodarone. He says he has fluttering sensation in his chest. There was no signs of obvious fluid overload on physical exam or chest x-ray. The cardiac enzymes so far are negative. His brain natriuretic peptide is 292. The rest of the review of systems is negative. PAST MEDICAL HISTORY: 1. Coronary artery disease with status post [address] South on 12/22/2016. 2. Ischemic cardiomyopathy with EF 30% by LV gram prior to the open heart surgery. 3. Paroxysmal atrial fibrillation, now with atrial flutter. 4. Status post Maze procedure. 5. Chronic anticoagulation with now therapeutic INR. 6. Hypertension. 7. Hyperlipidemia. 8. Diabetes mellitus. 9. Obstructive sleep apnea. ALLERGIES: NEOSPORIN. SOCIAL HISTORY: The patient is . He works as an industrial maintenance repairer helper. He is ambulating without any support. Denies smoking, drinking alcohol, or using street drugs. History And Physical [address] [address] NAME: NAYELY VAZQUEZ : 59 STATUS : ADM Juan A PAT#: [id number] AGE: 61 ADM/REG DATE : 01/20/17 MR#: [id number] REPORT SERV DATE: 01/20/17 DICTATED BY: AMADOU CABRERA DATE: 01/20/17 REPORT STATUS : Draft TRANSCRIBED BY: ARASELI DATE: 01/20/17 FAMILY HISTORY: Negative for sudden cardiac and premature coronary artery disease in the family. HOME MEDICATIONS: Tylenol p.r.n.; vitamin C 1 g twice a day; aspirin 81 mg once a day; atorvastatin 40 mg once a day; Keflex, the patient stopped taking Keflex 5 days ago; Colace; Byetta injection 10 mg once a day; Lasix 40 mg once a day; Neurontin 100 mg twice a day; Glucotrol 5 mg once a day; hydrocodone 10/325 mg every 4 hours as needed; insulin sliding scale; lisinopril 5 mg once a day; Glucophage 1 g twice a day; Zaroxolyn 5 mg once a day; Lopressor 12.5 mg twice a day; potassium supplement 20 mEq once a day; and Jantoven 9 mg once a day. PHYSICAL EXAMINATION: VITAL SIGNS: No acute distress. Blood pressure 102/70, heart rate 140 to 145 irregularly irregular. LUNGS: Decreased breath sounds, but no crackles. ABDOMEN: Morbidly obese, distended, nontender. EXTREMITIES: Lower extremity, trace edema around the ankle with decreased pedal pulses bilaterally. HEENT: Pupils reactive to light and accommodation. Moist mucosa membrane. NECK: No JVD. Normal carotid upstroke. No carotid bruits. COR: Normal S1, S2. No S3 or S4. No significant rub or murmurs. SKIN: Warm with normal turgor. MUSCULOSKELETAL: No kyphosis. NEURO/PSY - Alert and oriented. Nonfocal. DATA: The electrocardiogram is consistent with atrial flutter 2:1 block and heart rate 147 beats per minute with old inferior myocardial infarction, nonspecific T-wave changes. The chest x-ray is status post CABG. No acute pathology. Troponin x1 is negative. Electrolytes within normal limits. CBC remarkable for hemoglobin 12.6, INR 2.4. BNP 299. ASSESSMENT AND PLAN: 1. Atrial flutter with history of paroxysmal atrial fibrillation and status post recent Maze procedure. 2. Relative hypotension in the setting of atrial flutter. 3. Status post recent [address] South. 4. Ischemic cardiomyopathy. 5. Diabetes mellitus. Under this picture, the patient will be admitted for observation status and monitored bed. We will continue intravenous amiodarone per protocol. In case that he will not convert back to sinus rhythm, we will consider doing cardioversion tomorrow. He has been on therapeutic anticoagulation. We will plan to do echocardiogram for reassessment of systolic function and to exclude pericardial effusion postoperatively. His LV gram suggested ejection fraction of 70%. We will continue treatment with his diabetic medications and sliding scale of insulin. He is code status. Dr. Moody will see him in the morning. History And Physical [address] [address] NAME: NAYELY VAZQUEZ : 59 STATUS : ADM Juan A PAT#: [id number] AGE: 61 ADM/REG DATE : 01/20/17 MR#: [id number] REPORT SERV DATE: 01/20/17 DICTATED BY: AMADOU CABRERA DATE: 01/20/17 REPORT STATUS : Draft TRANSCRIBED BY: ARASELI DATE: 01/20/17 ESTEBAN/ARASELI adou Cabrera M.D. / [id number] CC: Amadou Cabrera M.D.
--- NOTE | ~2017-01-20 | OP ---
Record Of [facility] [address] [place]. [address] NAME: NAYELY VAZQUEZ : 59 STATUS : ADM IN PAT#: [id number] AGE: 61 ADM/REG DATE : 01/20/17 MR#: [id number] REPORT SERV DATE: 01/26/17 DICTATED BY: DIANE SOUTH DATE: 01/23/17 REPORT STATUS : Draft TRANSCRIBED BY: MODL DATE: 01/23/17 DATE OF PROCEDURE: 01/23/2017 PREOPERATIVE DIAGNOSES: 1. Pericardial effusion status post previous coronary artery bypass grafting and maze procedure. 2. Obesity. 3. Diabetes mellitus. POSTOPERATIVE DIAGNOSES: 1. Pericardial effusion status post previous coronary artery bypass grafting and maze procedure. 2. Obesity. 3. Diabetes mellitus. PROCEDURES PERFORMED: 1. Subxiphoid pericardial window with drainage of pericardial effusion. 2. Transesophageal echocardiography. SURGEON: Diane South M.D. MOLECULAR PATHOLOGIST: Max Krishnamurthy. ANESTHESIA: General. INDICATIONS: This is an obese male with diabetes and paroxysmal atrial fibrillation. He underwent a coronary artery bypass grafting with maze procedure performed on 12/22/2016. Postoperatively, he did well, was discharged to home on anticoagulation therapy with Coumadin. He re-presented to this hospital with atrial fibrillation and rapid ventricular response. He was cardioverted successfully. During the KELLY, he was observed to have a pericardial effusion, and formal transthoracic echocardiogram demonstrated a large pericardial effusion. CT scan of the chest confirmed the presence of pericardial effusion with small left pleural effusion. It was felt that this should be drained to relieve a pressure on the heart to reduce likelihood of continued atrial fibrillation. This was discussed with the patient and his , and they wished to proceed. FINDINGS AT PROCEDURE: 1. There was 230 mL of old bloody fluid in the pericardial space. Cultures of the fluid were sent. 2. Adolph drain was placed in the posterior pericardial space. 3. KELLY demonstrated good resolution of the effusion on the echocardiography. PATHOLOGIC SPECIMENS: Include cultures. DESCRIPTION OF PROCEDURE: The patient was brought to the operating suite, where he was laid in a supine position. The area was secured with an endotracheal tube, the lines were Record Of [facility] [address] [place]. [address] NAME: NAYELY VAZQUEZ : 59 STATUS : ADM IN PAT#: [id number] AGE: 61 ADM/REG DATE : 01/20/17 MR#: [id number] REPORT SERV DATE: 01/26/17 DICTATED BY: DIANE SOUTH DATE: 01/23/17 REPORT STATUS : Draft TRANSCRIBED BY: ARASELI DATE: 01/23/17 secured by Anesthesia. The patient's chest and abdomen were prepped with Hibiclens and ChloraPrep, and draped with Ioban sterile sheets. KELLY probe was placed and confirmation of the pericardial effusion was visualized when echocardiography was performed. Subxiphoid incision was made for approximately 6 cm, carried through the subcutaneous tissue. The midline or linea alba area was reopened, and a retractor was placed under the left costal margin. We then dissected our way up and over to the diaphragm just behind the sternum. The pericardium was identified and a small incision was made in the pericardium. There was a gush of old blood and this was aspirated. Echocardiography was then requested, and on echo, the pericardial effusion was much improved. We then irrigated the posterior pericardial space out. Once hemostasis was assured, a #19 mm Adolph drain was placed through a separate stab incision in the posterior pericardial space and secured. The wound was irrigated with saline and closed in layers with absorbable suture. Skin was closed in subcuticular fashion. The patient tolerated the procedure well. There were no complications. Sponge and needle counts were correct. DISPOSITION: The patient was awakened, extubated, and taken to the recovery room in stable condition. DEBRA/ARASELI Diane South M.D. / [id number] CC: Shweta Clemente M.D.
--- NOTE | ~2017-01-20 | OP ---
[facility] [address] [place]. [address] NAME: NAYELY VAZQUEZ : 59 STATUS : ADM Juan A PAT#: [id number] AGE: 61 ADM/REG DATE : 01/20/17 MR#: [id number] REPORT SERV DATE: 01/21/17 DICTATED BY: DATE: REPORT STATUS : Draft TRANSCRIBED BY: MODL DATE: 01/21/17 DATE OF PROCEDURE: 01/21/2017 CHIEF COMPLAINT/REASON FOR PROCEDURE: Atrial flutter. Written informed consent obtained. Please see chart for documentation. It was verified that patient had been on therapeutic anticoagulation therapy. PROCEDURE: With the assistance of my Anesthesia colleagues, Mr. Vazquez was sedated for the procedure. The transesophageal probe was placed with one attempt without complications. 1. The aortic valve appeared trileaflet and opened adequately. There was no evidence of aortic valvular regurgitation. 2. The left ventricular systolic function was moderately decreased in a global manner with a calculated ejection fraction of 41% via Raman's method. 3. The right ventricular chamber size appeared normal but systolic function was moderately decreased. 4. The left atrium was dilated. The left atrium was interrogated at multiple levels and depths. There was no evidence of left atrial thrombus. The left atrial appendage had been previously ligated during coronary artery bypass grafting. The right atrium was also well visualized. There was no evidence of right atrial thrombus present. 5. The mitral and tricuspid valve leaflets opened normally. There was trivial evidence of mitral valve regurgitation. 6. The pulmonary valve opened normally without evidence of significant pulmonary valvular regurgitation. 7. There was a large pericardial effusion that appeared loculated, best visualized lateral to the left ventricle and anterior to the right atrium. There was also a left-sided pleural effusion noted. Following verification of no thrombus present, DC cardioversion was performed, 200 joules x1 with return to sinus rhythm. IMPRESSION: 1. Successful DC cardioversion. 2. Moderately decreased left ventricular systolic function with an ejection fraction of 41%. [facility]/ARASELI Regine Morin M.D. / [id number] CC: [facility] [address] [facility]. [address] NAME: NAYELY VAZQUEZ : 59 STATUS : ADM Juan A PAT#: [id number] AGE: 61 ADM/REG DATE : 01/20/17 MR#: [id number] REPORT SERV DATE: 01/21/17 DICTATED BY: DATE: REPORT STATUS : Draft TRANSCRIBED BY: MODL DATE: 01/21/17 Shweta Clemente M.D.
[~2017-01-20 10:01] MED LIST changes: +JANTOVEN5 MG PO; +KLOR-CON M2020 MEQ PO; +L40 PO; +LIPITOR40 PO; +LOP25 PO; +NORCO1 TAB PO; +PRIN5 PO; +VITC500 PO; +Z5 PO
[2017-01-20 10:56] LABS: BASOPHILS 0.5 %; BASOPHILS ABSOLUTE 0.04 10/3/uL (0.0-0.16); EOSINOPHILS 1.6 %; EOSINOPHILS ABSOLUTE 0.13 10/3/uL (0.0-0.53); HEMATOCRIT 37.6 % (40.0-51.0); HEMOGLOBIN 12.8 g/dL (13.6-17.8); IMMATURE GRANULOCYTES 0.1 %; IMMATURE GRANULOCYTES ABSOLUTE 0.01 10/3/uL (0.0-0.11); LYMPHOCYTES 22.2 %; LYMPHOCYTES ABSOLUTE 1.84 10/3/uL (0.67-4.30); MEAN CORPUSCULAR VOLUME 85.3 fL (80-100); MEAN PLATELET VOLUME 9.8 fL (9.2-13.0); MONOCYTES 5.9 %; MONOCYTES ABSOLUTE 0.49 10/3/uL (0.21-1.20); NEUTROPHILS 69.7 %; NEUTROPHILS ABSOLUTE 5.78 10/3/uL (2.02-8.40); PLATELET COUNT 271 10/3/uL (150-400); RBC DISTRIBUTION WIDTH 13.6 % (12.0-16.0); RED CELL COUNT 4.41 10/6/uL (4.7-6.1); WHITE BLOOD CELLS 8.3 10/3/uL (4.5-10.5)
[2017-01-20 10:57] LABS: MANUAL DIFF NO %
[2017-01-20 11:03] LABS: INTERNATIONAL NORMAL RATI 2.4 UNITS (-); PARTIAL THROMBO TIME 37.1 SEC (22.5-37.2)
[2017-01-20 11:07] LABS: PROTIME (NOT ORD) 25.6 SEC (12.0-14.5)
[2017-01-20 11:18] LABS: BUN (BLOOD UREA NITROGEN) 32 MG/DL (6-23); CALCIUM, SERUM 8.6 MG/DL (8.5-10.4); CHEST PAIN PROFILE TAT 0 Hrs 26 Mins; CHLORIDE, SERUM 104 MMOL/L (96-112); CREATININE 1.07 MG/DL (0.70-1.30); GFR AFRICAN AMERICAN 88 ML/MIN (>=60); GFR NON AFRICAN AMERICAN 76 ML/MIN (>=60); GLUCOSE, SERUM 187 MG/DL (60-99); POTASSIUM, SERUM 3.5 MMOL/L (3.5-5.3); SODIUM, SERUM 142 MMOL/L (135-148); TROPONIN I 0.03 NG/ML (<0.05)
[2017-01-20 11:19] LABS: CO2 (CARBON DIOXIDE) 26 MMOL/L (24-34)
[2017-01-20] MEDS ORDERED: HALF81 PO (12:28)
[2017-01-20] MEDS ORDERED: VITC500 PO (12:28)
[2017-01-20] MEDS ORDERED: LIPITOR40 PO (12:28)
[2017-01-20] MEDS ORDERED: BYETTA10 SC (12:29)
[2017-01-20] MEDS ORDERED: L40 PO (12:29)
[2017-01-20] MEDS ORDERED: NEUR100 PO (12:30)
[2017-01-20] MEDS ORDERED: NORCO1 TAB PO ×2 (12:32)
[2017-01-20] MEDS ORDERED: GLUCOTROL5 PO (12:32)
[2017-01-20] MEDS ORDERED: PRIN5 PO (12:33)
[2017-01-20] MEDS ORDERED: NOVOPEN SC (12:33)
[2017-01-20] MEDS ORDERED: TOUJEO SC (12:33)
[2017-01-20] MEDS ORDERED: Z5 PO (12:34)
[2017-01-20] MEDS ORDERED: LOP25 PO (12:34)
[2017-01-20] MEDS ORDERED: KLOR-CON M2020 MEQ PO (12:34)
[2017-01-20] MEDS ORDERED: GLUCOPHAGE1000 MG PO (12:34)
[2017-01-20] MEDS ORDERED: CLA1000 MG PO (12:35)
[2017-01-20] MEDS ORDERED: JANTOVEN3 MG PO (12:35)
[2017-01-20] MEDS ORDERED: ACET500CAP PO (12:36)
[2017-01-20] MEDS ORDERED: DSS PO (12:36)
[2017-01-20] MEDS ORDERED: K500 PO (12:37)
[2017-01-21 07:23] LABS: INTERNATIONAL NORMAL RATI 2.5 UNITS (-); PROTIME (NOT ORD) 26.7 SEC (12.0-14.5)
[2017-01-21 07:27] LABS: BASOPHILS 0.5 %; BASOPHILS ABSOLUTE 0.04 10/3/uL (0.0-0.16); EOSINOPHILS 3.2 %; EOSINOPHILS ABSOLUTE 0.27 10/3/uL (0.0-0.53); HEMATOCRIT 34.7 % (40.0-51.0); HEMOGLOBIN 11.7 g/dL (13.6-17.8); LYMPHOCYTES 24.1 %; LYMPHOCYTES ABSOLUTE 2.01 10/3/uL (0.67-4.30); MANUAL DIFF NO %; MEAN CORPUS HGB CONC 33.7 g/dL (32.0-36.0); MEAN CORPUSCULAR HEMOGLOB 29.3 pg (26.0-34.0); MEAN PLATELET VOLUME 10.1 fL (9.2-13.0); MONOCYTES 5.3 %; MONOCYTES ABSOLUTE 0.44 10/3/uL (0.21-1.20); NEUTROPHILS 66.9 %; NEUTROPHILS ABSOLUTE 5.57 10/3/uL (2.02-8.40); PLATELET COUNT 213 10/3/uL (150-400); RBC DISTRIBUTION WIDTH 13.8 % (12.0-16.0); RED CELL COUNT 3.99 10/6/uL (4.7-6.1); WHITE BLOOD CELLS 8.3 10/3/uL (4.5-10.5)
[2017-01-21 07:29] LABS: CALCIUM, SERUM 8.3 MG/DL (8.5-10.4); CHLORIDE, SERUM 108 MMOL/L (96-112); CO2 (CARBON DIOXIDE) 24 MMOL/L (24-34); CREATININE 1.02 MG/DL (0.70-1.30); GFR AFRICAN AMERICAN 93 ML/MIN (>=60); GFR NON AFRICAN AMERICAN 80 ML/MIN (>=60); POTASSIUM, SERUM 3.5 MMOL/L (3.5-5.3); SODIUM, SERUM 141 MMOL/L (135-148)
[2017-01-21 07:31] LABS: BUN (BLOOD UREA NITROGEN) 28 MG/DL (6-23); GLUCOSE, SERUM 147 MG/DL (60-99)
[2017-01-22 04:25] LABS: BASOPHILS 0.5 %; BASOPHILS ABSOLUTE 0.05 10/3/uL (0.0-0.16); EOSINOPHILS 2.6 %; EOSINOPHILS ABSOLUTE 0.24 10/3/uL (0.0-0.53); HEMATOCRIT 35.6 % (40.0-51.0); HEMOGLOBIN 12.1 g/dL (13.6-17.8); IMMATURE GRANULOCYTES 0.1 %; IMMATURE GRANULOCYTES ABSOLUTE 0.01 10/3/uL (0.0-0.11); LYMPHOCYTES 20.8 %; LYMPHOCYTES ABSOLUTE 1.92 10/3/uL (0.67-4.30); MEAN CORPUSCULAR HEMOGLOB 29.7 pg (26.0-34.0); MEAN CORPUSCULAR VOLUME 87.3 fL (80-100); MONOCYTES 4.4 %; MONOCYTES ABSOLUTE 0.41 10/3/uL (0.21-1.20); NEUTROPHILS 71.6 %; NEUTROPHILS ABSOLUTE 6.61 10/3/uL (2.02-8.40); PLATELET COUNT 235 10/3/uL (150-400); RBC DISTRIBUTION WIDTH 13.8 % (12.0-16.0); RED CELL COUNT 4.08 10/6/uL (4.7-6.1); WHITE BLOOD CELLS 9.2 10/3/uL (4.5-10.5)
[2017-01-22 04:27] LABS: MANUAL DIFF NO %
[2017-01-22 04:32] LABS: INTERNATIONAL NORMAL RATI 2.2 UNITS (-); PROTIME (NOT ORD) 24.4 SEC (12.0-14.5)
[2017-01-22 04:35] LABS: BUN (BLOOD UREA NITROGEN) 28 MG/DL (6-23); CALCIUM, SERUM 8.2 MG/DL (8.5-10.4); CHLORIDE, SERUM 106 MMOL/L (96-112); CO2 (CARBON DIOXIDE) 26 MMOL/L (24-34); CREATININE 1.29 MG/DL (0.70-1.30); GFR AFRICAN AMERICAN 70 ML/MIN (>=60); GFR NON AFRICAN AMERICAN 60 ML/MIN (>=60); POTASSIUM, SERUM 3.5 MMOL/L (3.5-5.3); SODIUM, SERUM 143 MMOL/L (135-148)
[2017-01-22 04:36] LABS: GLUCOSE, SERUM 206 MG/DL (60-99)
[2017-01-22 16:54] LABS: INTERNATIONAL NORMAL RATI 1.9 UNITS (-); PROTIME (NOT ORD) 21.7 SEC (12.0-14.5)
[2017-01-22 21:23] LABS: ASCORBIC ACID (UR NOT ORDER) 40 (NEG); BILIRUBIN, URINE NEGATIVE (NEG); KETONE, URINE NEGATIVE (NEG); LEUKOCYTE ESTERASE(NOT OR NEG (NEG); WBC (NOT ORDERED) (RFLEX) < 1 (0-5)
[2017-01-23 05:28] LABS: INTERNATIONAL NORMAL RATI 1.9 UNITS (-); PROTIME (NOT ORD) 21.4 SEC (12.0-14.5)
[2017-01-23 05:38] LABS: BASOPHILS 0.7 %; BASOPHILS ABSOLUTE 0.05 10/3/uL (0.0-0.16); EOSINOPHILS 3.7 %; EOSINOPHILS ABSOLUTE 0.28 10/3/uL (0.0-0.53); HEMATOCRIT 33.9 % (40.0-51.0); HEMOGLOBIN 11.5 g/dL (13.6-17.8); IMMATURE GRANULOCYTES 0.3 %; IMMATURE GRANULOCYTES ABSOLUTE 0.02 10/3/uL (0.0-0.11); LYMPHOCYTES 25.6 %; LYMPHOCYTES ABSOLUTE 1.93 10/3/uL (0.67-4.30); MANUAL DIFF NO %; MEAN CORPUS HGB CONC 33.9 g/dL (32.0-36.0); MEAN CORPUSCULAR HEMOGLOB 29.6 pg (26.0-34.0); MEAN CORPUSCULAR VOLUME 87.1 fL (80-100); MEAN PLATELET VOLUME 9.7 fL (9.2-13.0); MONOCYTES 6.6 %; NEUTROPHILS 63.1 %; NEUTROPHILS ABSOLUTE 4.77 10/3/uL (2.02-8.40); PLATELET COUNT 208 10/3/uL (150-400); RBC DISTRIBUTION WIDTH 13.9 % (12.0-16.0); RED CELL COUNT 3.89 10/6/uL (4.7-6.1); WHITE BLOOD CELLS 7.6 10/3/uL (4.5-10.5)
[2017-01-23 05:46] LABS: A/G RATIO 0.9 (0.7-1.9); BUN (BLOOD UREA NITROGEN) 25 MG/DL (6-23); CALCIUM, SERUM 7.9 MG/DL (8.5-10.4); CHLORIDE, SERUM 109 MMOL/L (96-112); CO2 (CARBON DIOXIDE) 25 MMOL/L (24-34); CREATININE 1.06 MG/DL (0.70-1.30); GFR AFRICAN AMERICAN 89 ML/MIN (>=60); GFR NON AFRICAN AMERICAN 76 ML/MIN (>=60); GLOBULIN 3.5 G/DL (2.5-4.1); POTASSIUM, SERUM 3.4 MMOL/L (3.5-5.3); SGOT(AST) 14 U/L (5-40); SGPT(ALT) 33 U/L (5-65); SODIUM, SERUM 145 MMOL/L (135-148); TOTAL BILIRUBIN 0.4 MG/DL (0-1.2); TOTAL PROTEIN 6.5 G/DL (6.0-8.5)
[2017-01-23 05:49] LABS: ALKALINE PHOSPHATASE 74 U/L (45-117); GLUCOSE, SERUM 132 MG/DL (60-99)
[2017-01-24 06:23] LABS: BASOPHILS 0.2 %; BASOPHILS ABSOLUTE 0.02 10/3/uL (0.0-0.16); EOSINOPHILS 2.2 %; EOSINOPHILS ABSOLUTE 0.18 10/3/uL (0.0-0.53); HEMATOCRIT 33.5 % (40.0-51.0); HEMOGLOBIN 11.3 g/dL (13.6-17.8); IMMATURE GRANULOCYTES 0.1 %; IMMATURE GRANULOCYTES ABSOLUTE 0.01 10/3/uL (0.0-0.11); LYMPHOCYTES 16.5 %; LYMPHOCYTES ABSOLUTE 1.34 10/3/uL (0.67-4.30); MEAN CORPUS HGB CONC 33.7 g/dL (32.0-36.0); MEAN CORPUSCULAR HEMOGLOB 29.2 pg (26.0-34.0); MEAN CORPUSCULAR VOLUME 86.6 fL (80-100); MEAN PLATELET VOLUME 9.7 fL (9.2-13.0); MONOCYTES 4.9 %; NEUTROPHILS 76.1 %; NEUTROPHILS ABSOLUTE 6.16 10/3/uL (2.02-8.40); PLATELET COUNT 208 10/3/uL (150-400); RBC DISTRIBUTION WIDTH 13.6 % (12.0-16.0); RED CELL COUNT 3.87 10/6/uL (4.7-6.1); WHITE BLOOD CELLS 8.1 10/3/uL (4.5-10.5)
[2017-01-24 06:28] LABS: MANUAL DIFF NO %
[2017-01-24 06:33] LABS: INTERNATIONAL NORMAL RATI 1.6 UNITS (-); PROTIME (NOT ORD) 18.8 SEC (12.0-14.5)
[2017-01-24 06:49] LABS: CHLORIDE, SERUM 103 MMOL/L (96-112); CREATININE 1.17 MG/DL (0.70-1.30); GFR AFRICAN AMERICAN 79 ML/MIN (>=60); GFR NON AFRICAN AMERICAN 68 ML/MIN (>=60); POTASSIUM, SERUM 3.5 MMOL/L (3.5-5.3); SODIUM, SERUM 140 MMOL/L (135-148)
[2017-01-24 06:50] LABS: BUN (BLOOD UREA NITROGEN) 18 MG/DL (6-23); CALCIUM, SERUM 8.9 MG/DL (8.5-10.4); CO2 (CARBON DIOXIDE) 30 MMOL/L (24-34); GLUCOSE, SERUM 258 MG/DL (60-99)
[2017-01-25 05:58] LABS: INTERNATIONAL NORMAL RATI 1.4 UNITS (-); PROTIME (NOT ORD) 17.2 SEC (12.0-14.5)
[2017-01-25 06:02] LABS: BASOPHILS 0.5 %; BASOPHILS ABSOLUTE 0.04 10/3/uL (0.0-0.16); EOSINOPHILS 5.2 %; HEMATOCRIT 35.4 % (40.0-51.0); HEMOGLOBIN 12.1 g/dL (13.6-17.8); IMMATURE GRANULOCYTES 0.1 %; IMMATURE GRANULOCYTES ABSOLUTE 0.01 10/3/uL (0.0-0.11); LYMPHOCYTES 24.5 %; LYMPHOCYTES ABSOLUTE 1.88 10/3/uL (0.67-4.30); MEAN CORPUS HGB CONC 34.2 g/dL (32.0-36.0); MEAN CORPUSCULAR VOLUME 84.9 fL (80-100); MEAN PLATELET VOLUME 9.7 fL (9.2-13.0); MONOCYTES 6.1 %; MONOCYTES ABSOLUTE 0.47 10/3/uL (0.21-1.20); NEUTROPHILS 63.6 %; NEUTROPHILS ABSOLUTE 4.86 10/3/uL (2.02-8.40); PLATELET COUNT 210 10/3/uL (150-400); RBC DISTRIBUTION WIDTH 13.9 % (12.0-16.0); RED CELL COUNT 4.17 10/6/uL (4.7-6.1); WHITE BLOOD CELLS 7.7 10/3/uL (4.5-10.5)
[2017-01-25 06:09] LABS: BUN (BLOOD UREA NITROGEN) 20 MG/DL (6-23); CALCIUM, SERUM 8.3 MG/DL (8.5-10.4); CHLORIDE, SERUM 104 MMOL/L (96-112); CO2 (CARBON DIOXIDE) 24 MMOL/L (24-34); CREATININE 0.81 MG/DL (0.70-1.30); GFR AFRICAN AMERICAN 113 ML/MIN (>=60); GFR NON AFRICAN AMERICAN 97 ML/MIN (>=60); GLUCOSE, SERUM 244 MG/DL (60-99); MANUAL DIFF NO %; POTASSIUM, SERUM 3.5 MMOL/L (3.5-5.3); SODIUM, SERUM 140 MMOL/L (135-148)
[2017-01-26 04:47] LABS: BASOPHILS 0.7 %; BASOPHILS ABSOLUTE 0.05 10/3/uL (0.0-0.16); EOSINOPHILS 5.2 %; EOSINOPHILS ABSOLUTE 0.35 10/3/uL (0.0-0.53); HEMATOCRIT 34.2 % (40.0-51.0); HEMOGLOBIN 11.9 g/dL (13.6-17.8); IMMATURE GRANULOCYTES 0.1 %; IMMATURE GRANULOCYTES ABSOLUTE 0.01 10/3/uL (0.0-0.11); LYMPHOCYTES 32.3 %; LYMPHOCYTES ABSOLUTE 2.19 10/3/uL (0.67-4.30); MEAN CORPUS HGB CONC 34.8 g/dL (32.0-36.0); MEAN CORPUSCULAR HEMOGLOB 29.8 pg (26.0-34.0); MEAN CORPUSCULAR VOLUME 85.5 fL (80-100); MEAN PLATELET VOLUME 9.5 fL (9.2-13.0); MONOCYTES 7.1 %; MONOCYTES ABSOLUTE 0.48 10/3/uL (0.21-1.20); NEUTROPHILS 54.6 %; PLATELET COUNT 219 10/3/uL (150-400); RBC DISTRIBUTION WIDTH 13.4 % (12.0-16.0); WHITE BLOOD CELLS 6.8 10/3/uL (4.5-10.5)
[2017-01-26 04:53] LABS: MANUAL DIFF NO %
[2017-01-26 04:55] LABS: INTERNATIONAL NORMAL RATI 1.4 UNITS (-); PROTIME (NOT ORD) 16.6 SEC (12.0-14.5)
[2017-01-26 05:08] LABS: BUN (BLOOD UREA NITROGEN) 21 MG/DL (6-23); CALCIUM, SERUM 8.3 MG/DL (8.5-10.4); CHLORIDE, SERUM 102 MMOL/L (96-112); CREATININE 0.99 MG/DL (0.70-1.30); GFR AFRICAN AMERICAN 96 ML/MIN (>=60); GFR NON AFRICAN AMERICAN 83 ML/MIN (>=60); GLUCOSE, SERUM 222 MG/DL (60-99); POTASSIUM, SERUM 3.8 MMOL/L (3.5-5.3); SODIUM, SERUM 140 MMOL/L (135-148)
[2017-01-26 05:15] LABS: CO2 (CARBON DIOXIDE) 29 MMOL/L (24-34)
[2017-01-26] MEDS ORDERED: ELIQUIS 5 MG TAB5 MG PO (15:35)
[2017-06-29] MEDS ORDERED: VITC500 PO (17:09)
[2017-06-29] MEDS ORDERED: ELIQUIS 5 MG TAB5 MG PO (17:09)
[2017-06-29] MEDS ORDERED: LIPITOR40 PO (17:10)
[2017-06-29] MEDS ORDERED: ASAB PO (17:10)
[2017-06-29] MEDS ORDERED: OTC STOOL SOFTENER PO (17:11)
[2017-06-29] MEDS ORDERED: L40 PO (17:11)
[2017-06-29] MEDS ORDERED: GLUCOTROL5 PO (17:12)
[2017-06-29] MEDS ORDERED: PRIN5 PO (17:12)
[2017-06-29] MEDS ORDERED: GLUCOPHAGE1000 MG PO (17:13)
[2017-06-29] MEDS ORDERED: Z5 PO (17:14)
[2017-06-29] MEDS ORDERED: LOP25 PO (17:15)
[2017-06-29] MEDS ORDERED: KLOR-CON M2020 MEQ PO (17:15)
[2017-06-29] MEDS ORDERED: BYETTA10 SC (17:16)
[2017-06-29] MEDS ORDERED: NOVOLOG SC (17:17)
[2017-06-29] MEDS ORDERED: NEUR100 PO (17:18)
[2017-06-29] MEDS ORDERED: TOUJEO SC (17:18)
[2017-06-29] MEDS ORDERED: CLA1000 MG PO (17:20)
[2017-06-29] MEDS ORDERED: FORTAMET500 MG PO (17:25)
== END 2017-01-26 16:02 | disposition home or self-care (01) | DRG 271 ==
LOC: ER 10:01 → CDU1 13:21 → 5NO 14:41
PROVIDERS: Emergency Medicine; Internal Medicine Cardiovascular Disease; Nurse Practitioner Family
PROC: 5A2204Z Restoration of Cardiac Rhythm, Single (ICD-10-PCS; principal; 2017-01-21)
PROC: 30233K1 Transfusion of Nonautologous Frozen Plasma into Peripheral Vein, Percutaneous Approach (ICD-10-PCS; 2017-01-22)
PROC: 0W9D0ZZ Drainage of Pericardial Cavity, Open Approach (ICD-10-PCS; 2017-01-23)
PROC: B246ZZ4 Ultrasonography of Right and Left Heart, Transesophageal (ICD-10-PCS; 2017-01-23)
DX: I31.3 Pericardial effusion (noninflammatory) (principal); I42.9 Cardiomyopathy, unspecified; I48.0 Paroxysmal atrial fibrillation; I10 Essential (primary) hypertension; Z79.01 Long term (current) use of anticoagulants; E78.5 Hyperlipidemia, unspecified; E11.9 Type 2 diabetes mellitus without complications; G47.33 Obstructive sleep apnea (adult) (pediatric); I25.10 Atherosclerotic heart disease of native coronary artery without angina pectoris; Z95.1 Presence of aortocoronary bypass graft; E66.9 Obesity, unspecified; Z68.36 Body mass index [BMI] 36.0-36.9, adult
CPT/HCPCS: 36415; 71010; 71020; 71250; 80048; 80053; 81001; 82962; 83735; 83880; 84443; 84484; 85025; 85610; 85730; 86900; 86901; 87015; 87070; 87075; 87102; 87116; 87205; 87641; 92960; 93005; 93312; 93320; 93325; 96365; 96366; 99285; A9270-GY; C8929; J0282; J0690; J2250; J2370; J2405; J2710; J2795; J3010; P9059; Q9957

== ENCOUNTER 2017-06-18 06:09 | Day surgery (SDC) | payer BC ==
[~2017-06-18] VITALS: Ht 200.7 cm; Wt 136.1 kg
--- NOTE | ~2017-06-18 | EGD ---
EGD REPORT [facility] [address] [address] NAME: NAYELY VAZQUEZ : 59 STATUS : REG [facility] PAT#: [id number] AGE: 62 ADM/REG DATE : 06/18/17 MR#: [id number] REPORT SERV DATE: 06/18/17 DICTATED BY: ANTOINE JULES DATE: 06/18/17 REPORT STATUS : Draft TRANSCRIBED BY: [employer] DATE: 06/18/17 [facility] Patient Name: Nayely Vazquez Date of : 1955 Attending MD: ANTOINE JULES MD Procedure Date No Time: 06/18/2017 Procedure: Colonoscopy Indications: Screening for colorectal malignant neoplasm, This is the patient's first colonoscopy Referring MD: UZIEL STANLEY Medicines: See the Anesthesia note for documentation of the administered medications Complications: No immediate complications. Procedure: Pre-Anesthesia Assessment: - ASA Grade Assessment: III - A patient with severe systemic disease. After I obtained informed consent, the scope was passed under direct vision. Throughout the procedure, the patient's blood pressure, pulse, and oxygen saturations were monitored continuously. The [id number] was introduced through the anus and advanced to the cecum, identified by appendiceal orifice and ileocecal valve. The colonoscopy was performed without difficulty. The patient tolerated the procedure well. The quality of the bowel preparation was adequate. Findings: The perianal and digital rectal examinations were normal. Diverticula were found in the sigmoid colon. Internal hemorrhoids were found during retroflexion and were small. A sessile polyp was found in the proximal ascending colon. The polyp was 15 mm in size. The polyp was removed with a hot snare. Resection and retrieval were complete. To prevent bleeding post-intervention, two hemostatic clips were successfully placed. (A 3rd clip did not deploy). Two sessile polyps were found in the ascending colon. The polyps were 10 mm in size. These polyps were removed with a hot snare. Resection and retrieval were complete. Impression: - Diverticulosis in the sigmoid colon. - Internal hemorrhoids. - One 15 mm polyp in the proximal ascending colon. Resected and retrieved. Clips were placed. - Two 10 mm polyps in the ascending colon. Resected and retrieved. EGD REPORT [address] [address] NAME: NAYELY VAZQUEZ : 59 STATUS : REG [facility] PAT#: [id number] AGE: 62 ADM/REG DATE : 06/18/17 MR#: [id number] REPORT SERV DATE: 06/18/17 DICTATED BY: ANTOINE JULES DATE: 06/18/17 REPORT STATUS : Draft TRANSCRIBED BY: [employer] DATE: 06/18/17 Recommendation: - Patient has a contact number available for emergencies. The signs and symptoms of potential delayed complications were discussed with the patient. Return to normal activities tomorrow. Written discharge instructions were provided to the patient. - Regular diet. - Continue present medications. - Repeat colonoscopy for surveillance based on pathology results. - FOR YOUR BIOPSY RESULTS: Please go to [email or web address] and register to receive your results via the portal. Your biopsy results will be posted there in about 7 to 10 days. IF you do not see result in 10 days, call office. - Restart Eliquis today. Call office if black stool or bleeding over next 2 weeks. Procedure Code(s): --- Professional --- 09130, Colonoscopy, flexible, proximal to splenic flexure; with removal of tumor(s), polyp(s), or other lesion(s) by snare technique Diagnosis Code(s): --- Professional --- K64.8, Other hemorrhoids K57.30, Diverticulosis of large intestine without perforation or abscess without bleeding D12.2, Benign neoplasm of ascending colon Z12.11, Encounter for screening for malignant neoplasm of colon CPT copyright 2013 [employer]. All rights reserved. The codes documented in this report are preliminary and upon transportation security officer review may be revised to meet current compliance requirements. Antoine Jules MD ANTOINE JULES MD 06/18/2017 8:14 AM This report has been signed electronically. Number of Addenda: 0 Note Initiated On: 06/18/2017 7:28 AM Scope Withdrawal Time 0 hours 20 minutes 58 seconds [address] [place] [address]
[~2017-06-18 06:09] MED LIST changes: +ACET500CAP PO; +DSS PO; +HALF81 PO; +JANTOVEN3 MG PO; +K500 PO; +NOVOPEN SC
== END 2017-06-18 23:59 | disposition home or self-care (01) ==
LOC: DMU 06:09
PROVIDERS: Internal Medicine Gastroenterology
PROC: 0DBK8ZX Excision of Ascending Colon, Via Natural or Artificial Opening Endoscopic, Diagnostic (ICD-10-PCS; principal; 2017-06-18 07:30)
DX: Z12.11 Encounter for screening for malignant neoplasm of colon (principal); D12.2 Benign neoplasm of ascending colon; K57.30 Diverticulosis of large intestine without perforation or abscess without bleeding; K64.8 Other hemorrhoids; I25.10 Atherosclerotic heart disease of native coronary artery without angina pectoris; E11.9 Type 2 diabetes mellitus without complications; I48.91 Unspecified atrial fibrillation; E66.9 Obesity, unspecified; Z95.810 Presence of automatic (implantable) cardiac defibrillator; Z95.1 Presence of aortocoronary bypass graft; Z88.8 Allergy status to other drugs, medicaments and biological substances; Z79.84 Long term (current) use of oral hypoglycemic drugs; Z79.82 Long term (current) use of aspirin; Z79.899 Other long term (current) drug therapy; Z68.33 Body mass index [BMI] 33.0-33.9, adult; Z98.890 Other specified postprocedural states
CPT/HCPCS: 82962; 88305; 93288